=== PATIENT | female | born 1990 | race Caucasian/White ===

== ENCOUNTER 2020-10-31 10:08 | Emergency (ER) | payer OTHER ==
[2020-10-31] MEDS ORDERED: KETOROLAC 15 MG/ML 1 ML VIAL IM STA (11:05)
--- NOTE | 2020-10-31 11:42 | XR ---
EXAMINATION TYPE: XR lumbosacral spine min 4V DATE OF EXAM: 10/31/2020 COMPARISON: None HISTORY: Pain TECHNIQUE: 5 view lumbar spine FINDINGS: There is a scoliosis present with convexity to the left centered at L2. There are 5 lumbar- type vertebral bodies. The pedicles are intact. No spondylolytic defects are evident. Facets appear n ormal. Vertebral body heights are preserved. Disc heights are preserved. Alignment in the sagittal pl ane is normal. IMPRESSION: 1. Scoliosis.
--- NOTE | 2020-10-31 11:50 | ED ---
Back Pain HPI - General Chief Complaint: Back Pain/Injury Stated Complaint: Back pain/leg numbness and falls Time Seen by Provider: 10/31/20 10:37 Source: patient, RN notes reviewed Mode of arrival: ambulatory Limitations: physical limitation - History of Present Illness Initial Comments: This is a 30-year-old female sent emergency Department chief complaint low back pain. 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 Patient states that seemed to dissipate some states last couple days she had extreme pain persists morning. States that it sharp pain in her lower lumbar region and radiates down her both of her legs. Patient states it felt like the pain sent to the ground earlier today she denies any bowel, bladder incontinence or retention or saddle anesthesias. She states she has no scoliosis. Patient has no dysuria no hematuria denies any chance . - Related Data Previous Rx's Medication Instructions Recorded Ibuprofen [Motrin] 600 mg PO Q8HR PRN #20 tab 10/31/20 Orphenadrine [Norflex] 100 mg PO Q12H #14 tablet.er 10/31/20 predniSONE 50 mg PO DAILY #5 tab 10/31/20 Allergies Allergy/AdvReac Type Severity Reaction Status Date / Time nitrofurantoin Allergy Rash/Hives Verified 10/31/20 10:19 [From Macrobid] morphine AdvReac headache Verified 10/31/20 10:20 Review of Systems ROS Statement: Those systems with pertinent positive or pertinent negative responses have been documented in the HPI. ROS Other: All systems not noted in ROS Statement are negative. Past Medical History Past Medical History: Thyroid Disorder History of Any Multi-Drug Resistant Organisms: None Reported Past Surgical History: Orthopedic Surgery Additional Past Surgical History / Comment(s): finger Past Psychological History: ADD/ADHD, Depression, PTSD Smoking Status: Current every day smoker Past Alcohol Use History: Rare Past Drug Use History: Marijuana General Exam Limitations: physical limitation General appearance: alert, in no apparent distress Head exam: Present: atraumatic, normocephalic, normal inspection Eye exam: Present: normal appearance, PERRL, EOMI. Absent: scleral icterus, conjunctival injection, periorbital swelling ENT exam: Present: normal exam, normal oropharynx, mucous membranes moist Neck exam: Present: normal inspection, full ROM. Absent: tenderness, meningismus, lymphadenopathy Respiratory exam: Present: normal lung sounds bilaterally. Absent: respiratory distress, wheezes, rales, rhonchi, stridor Cardiovascular Exam: Present: regular rate, normal rhythm, normal heart sounds. Absent: systolic murmur, diastolic murmur, rubs, gallop, clicks GI/Abdominal exam: Present: soft, normal bowel sounds. Absent: distended, tenderness, guarding, rebound, rigid Extremities exam: Present: other (Lower extremity strength equal bilaterally neurovascular intact equal and equal warmth) Back exam: Present: full ROM (Moderate discomfort), tenderness, muscle spasm, paraspinal tenderness. Absent: vertebral tenderness Neurological exam: Present: alert, oriented X3, CN II-XII intact, reflexes normal. Absent: motor sensory deficit Skin exam: Present: warm, dry, intact, normal color. Absent: rash Course Vital Signs 10/31/20 10/31/20 10:13 12:30 Temperature 98.6 F 98.4 F Pulse Rate 99 72 Respiratory 16 18 Rate Blood Pressure 129/84 106/62 O2 Sat by Pulse 100 99 Oximetry Medical Decision Making - Medical Decision Making 30-year-old presented for low back pain. Patient's symptoms are more consistent with lumbar to The. She is neurovascularly intact with no red flag symptoms. Patient will follow-up with on-call orthopedics. Patient provided pain control. Return parameters were discussed. Disposition Clinical Impression: Lumbar radiculopathy Disposition: HOME SELF-CARE Condition: Stable Instructions (If sedation given, give patient instructions): Acute Low Back Pain (ED) Additional Instructions: Please return to the Emergency Department if symptoms worsen or any other con cerns. Prescriptions: Ibuprofen [Motrin] 600 mg PO Q8HR PRN #20 tab PRN Reason: Pain Orphenadrine [Norflex] 100 mg PO Q12H #14 tablet.er predniSONE 50 mg PO DAILY #5 tab Is patient prescribed a controlled substance at d/c from ED?: No Referrals: None,Stated [Primary Care Provider] - 1-2 days Nathan Neves DO [Doctor of Osteopathic Medicine] - 1-2 days Time of Disposition: 12:38
[2020-10-31 12:33] VITALS: BP 106/62; PULSE 72; RESP 18; TEMP 98.4
[2020-10-31] MEDS ORDERED: HYDROcodone/APAP 5-325MG 1 EACH TAB PO STA (12:36)
[2020-10-31] MEDS ORDERED: ACET/COD 300 MG/30 MG STARTER PACK 6 TAB BTL PO STA (12:36)
== END 2020-10-31 12:46 | disposition home or self-care (01) ==
LOC: EC 10:08
DX: M54.16 Radiculopathy, lumbar region (principal); F17.200 Nicotine dependence, unspecified, uncomplicated; Z88.5 Allergy status to narcotic agent; Z88.1 Allergy status to other antibiotic agents
CPT/HCPCS: 72110; 99283; 96372; J1885

== ENCOUNTER → 2024-06-22 | Outpatient (CLI) | payer OTHER ==
--- NOTE | 2024-06-22 14:52 | XR ---
EXAMINATION TYPE: XR chest 2V DATE OF EXAM: 06/22/2024 2:46 PM COMPARISON: None. CLINICAL INDICATION: Female, 33 years old with history of S20.211A CONTUSION OF RIGHT FRONT WALL OF T HORAX, INITIAL EN, TECHNIQUE: XR chest 2V view(s) obtained. FINDINGS: The heart size is normal. The pulmonary vasculature is normal. The lungs are clear. IMPRESSION: 1. No acute pulmonary process. [facility], , 06/22/2024 2:50 PM
--- NOTE | 2024-06-22 14:54 | XR ---
EXAMINATION TYPE: XR ribs RT DATE OF EXAM: 06/22/2024 2:46 PM COMPARISON: None. CLINICAL INDICATION: Female, 33 years old with history of S20.211A CONTUSION OF RIGHT FRONT WALL OF T HORAX, INITIAL EN, TECHNIQUE: Right ribs 2 view(s) obtained. FINDINGS: No displaced rib fractures are evident. No pneumothorax is evident. Follow up exams can be performed as clinically indicated IMPRESSION: 1. No displaced rib fractures [facility], , 06/22/2024 2:51 PM
== END | disposition home or self-care (01) ==
LOC: RADXRMAIN 14:19
PROVIDERS: ATTEND Emergency Medicine
DX: S20.211A Contusion of right front wall of thorax, initial encounter (principal)
CPT/HCPCS: 71046

== ENCOUNTER 2025-01-18 08:37 | Emergency (ER) | payer OTHER ==
--- NOTE | 2025-01-18 09:17 | ED ---
Abdominal Pain HPI - General Chief Complaint: Abdominal Pain Stated Complaint: NV Time Seen by Provider: 01/18/25 08:43 Source: patient, RN notes reviewed Mode of arrival: ambulatory Limitations: no limitations - History of Present Illness Initial Comments: 34-year-old female presents emergency department chief complaint of nausea vomiting, abdominal discomfort. Patient states started states initially thought it was just from she recently started Zepbound and states that she did have 2 alcoholic drinks recently. Patient states that she has having epigastric discomfort, left upper quadrant states that she just feels very dehydrated cannot keep anything down. Patient did try some Zofran at home with no relief. - Related Data Previous Rx's Medication Instructions Recorded Ibuprofen [Motrin] 600 mg PO Q8HR PRN #20 tab 10/31/20 Orphenadrine [Norflex] 100 mg PO Q12H #14 tablet.er 10/31/20 predniSONE 50 mg PO DAILY #5 tab 10/31/20 Famotidine [Pepcid] 20 mg PO BID #28 tablet 01/18/25 Metoclopramide [Reglan] 10 mg PO TID PRN #15 tab 01/18/25 Allergies Allergy/AdvReac Type Severity Reaction Status Date / Time nitrofurantoin Allergy Rash/Hives Verified 10/31/20 10:19 [From Macrobid] morphine AdvReac headache Verified 10/31/20 10:20 Review of Systems ROS Statement: Those systems with pertinent positive or pertinent negative responses have been documented in the HPI. ROS Other: All systems not noted in ROS Statement are negative. Past Medical History Past Medical History: Thyroid Disorder Additional Past Medical History / Comment(s): hpsimoto's History of Any Multi-Drug Resistant Organisms: None Reported Past Surgical History: Orthopedic Surgery Additional Past Surgical History / Comment(s): finger Past Psychological History: ADD/ADHD, Depression, PTSD Smoking Status: Current every day smoker Past Alcohol Use History: Rare Past Drug Use History: Marijuana General Exam Limitations: no limitations General appearance: alert, in no apparent distress Head exam: Present: atraumatic, normocephalic, normal inspection Eye exam: Present: normal appearance, PERRL, EOMI. Absent: scleral icterus, conjunctival injection, periorbital swelling ENT exam: Present: normal exam, normal oropharynx, mucous membranes moist Neck exam: Present: normal inspection, full ROM. Absent: tenderness, meningismus, lymphadenopathy Respiratory exam: Present: normal lung sounds bilaterally. Absent: respiratory distress, wheezes, rales, rhonchi, stridor Cardiovascular Exam: Present: regular rate, normal rhythm, normal heart sounds. Absent: systolic murmur, diastolic murmur, rubs, gallop, clicks GI/Abdominal exam: Present: soft, normal bowel sounds. Absent: distended, tenderness, guarding, rebound, rigid Course Vital Signs 01/18/25 08:48 Temperature 97.5 F L Pulse Rate 91 Respiratory 20 Rate Blood Pressure 135/90 O2 Sat by Pulse 99 Oximetry Medical Decision Making - Medical Decision Making Was pt. sent in by a medical professional or institution (, PA, DIRECTOR PHYSICAL THERAPY, urgent care, hospital, or [facility]...) When possible be specific @ -No Did you speak to anyone other than the patient for history (EMS, parent, family, police, friend...)? What history was obtained from this source @ -No Did you review nursing and triage notes (agree or disagree)? Why? @ -I reviewed and agree with nursing and triage notes Were old charts reviewed (outside hosp., previous admission, EMS record, old EKG, old radiological studies, urgent care reports/EKG's, [facility] records)? Report findings @ -No old charts were reviewed Differential Diagnosis (chest pain, altered mental status, abdominal pain women, abdominal pain men, vaginal bleeding, weakness, fever, dyspnea, syncope, headache, dizziness, GI bleed, back pain, seizure, CVA, palpatations, mental health, musculoskeletal)? @ -Differential Abdominal Pain Women: Appendicitis, Cholecystitis, diverticulosis, ischemic bowel, pancreatitis, hepatitis, UTI, gastroenteritis, AAA, incarcerated hernia, bowel obstruction, constipation, inflammatory bowel, hepatitis, peptic ulcer disease, splenic infarction, perforated viscus, vulvitis, ovarian torsion, PID, kidney stone, placenta abruption, this is not meant to be an all-inclusive list EKG interpreted by me (3pts min.). @ -None X-rays interpreted by me (1pt min.). @ -None done CT interpreted by me (1pt min.). @ -None done U/S interpreted by me (1pt. min.). @ -None done What testing was considered but not performed or refused? (CT, X-rays, U/S, labs)? Why? @ -None What meds were considered but not given or refused? Why? @ -None Did you discuss the management of the patient with other professionals (professionals i.e. , PA, DIRECTOR PHYSICAL THERAPY, lab, RT, psych nurse, social service liaison, pilot safety inspector, teacher, landcare officer, adult protective caseworker)? Give summary @ -No Was smoking cessation discussed for >3mins.? @ -No Was critical care preformed (if so, how long)? @ -No Were there social determinants of health that impacted care today? How? (Homelessness, low income, unemployed, alcoholism, drug addiction, transportation, low edu. Level, literacy, decrease access to med. care, [place] [facility], rehab)? @ -No Was there de-escalation of care discussed even if they declined (Discuss DNR or withdrawal of care, Hospice)? DNR status @ -No What co-morbidities impacted this encounter? (DM, HTN, Smoking, COPD, CAD, Ca ncer, CVA, ARF, Chemo, Hep., AIDS, mental health diagnosis, sleep apnea, morbid obesity)? @ -None Was patient admitted / discharged? Hospital course, mention meds given and route, prescriptions, significant lab abnormalities, going to OR and other pertinent info. @ -Discharge patient does feel greatly improved IV fluids, antiemetics. Laboratory studies unremarkable. [place] this related to medication reaction. Patient will follow with the PCP discharged with antiemetics. Undiagnosed new problem with uncertain prognosis? @ -No Drug Therapy requiring intensive monitoring for toxicity (Heparin, Nitro, Insulin, Cardizem)? @ -No Were any procedures done? @ -No Diagnosis/symptom? @ -Nausea vomiting dehydration medication reaction Acute, or Chronic, or Acute on Chronic? @ -Acute Uncomplicated (without systemic symptoms) or Complicated (systemic symptoms)? @ -Complicated Side effects of treatment? @ -No Exacerbation, Progression, or Severe Exacerbation? @ -No Poses a threat to life or bodily function? How? (Chest pain, [place], ID, pneumonia, PE, COPD, DKA, ARF, appy, cholecystitis, CVA, Diverticulitis, Homicidal, Suicidal, threat to staff... and all critical care pts) @ -No - Lab Data Result diagrams: 01/18/25 09:06 01/18/25 09:06 Lab Results 01/18/25 01/18/2501/18/25 Range/Units 09:06 09:06 09:06 WBC 10.06 H (4.50-10.00) 10*3/uL RBC 5.10 (4.10-5.20) 10*6/uL Hgb 15.5 H (12.0-15.0) g/dL Hct 44.2 (37.2-46.3) % MCV 86.7 (80.0-97.0) fL MCH 30.4 (27.0-32.0) pg MCHC 35.1 (32.0-37.0) g/dL Plt Count 221 (140-440) 10*3/uL MPV 10.4 (9.5-12.2) fL Immature Gran % (Auto) 0.3 % Neutrophils % 80.2 % Lymphocytes % 13.1 % Monocytes % 5.7 % Eosinophils % 0.2 % Basophils % 0.5 % Immature Gran # 0.03 (0.00-0.04) 10*3/uL Neutrophils # 8.07 H (1.80-7.70) 10*3/uL Lymphocytes # 1.32 (0.90-5.00) 10*3/uL Monocytes # 0.57 (0.20-1.00) 10*3/uL Eosinophils # 0.02 L (0.04-0.35) 10*3/uL Basophils # 0.05 (0.00-0.10) 10*3/uL Sodium (137-145) mmol/L Potassium (3.5-5.1) mmol/L Chloride (98-107) mmol/L Carbon Dioxide (22-30) mmol/L Anion Gap mmol/L BUN (7-17) mg/dL Creatinine (0.52-1.04) mg/dL Est GFR (CKD-EPI)AfAm (>60 ml/min/1.73 sqM) Est GFR (CKD-EPI)NonAf (>60 ml/min/1.73 sqM) Glucose (74-99) mg/dL Calcium (8.4-10.2) mg/dL Magnesium (1.6-2.3) mg/dL Total Bilirubin (0.2-1.3) mg/dL AST (14-36) U/L ALT (4-34) U/L Alkaline Phosphatase (38-126) U/L Total Protein (6.3-8.2) g/dL Albumin (3.5-5.0) g/dL Lipase (23-300) U/L Urine Color Yellow Urine Appearance Clear (Clear) Urine pH 6.5 (5.0-8.0) Ur Specific [place] 1.028 (1.001-1.035) Urine Protein 1+ H (Negative) Urine Glucose (UA) Negative (Negative) Urine Ketones 2+ H (Negative) Urine Blood Negative (Negative) Urine Nitrite Negative (Negative) Urine Bilirubin Negative (Negative) Urine Urobilinogen 3.0 (<2.0) mg/dL Ur Leukocyte Esterase Negative (Negative) Urine RBC 1 (0-5) /hpf Urine WBC 4 (0-5) /hpf Ur Squamous Epith Cells 4 (0-4) /hpf Urine Mucus Rare H (None) /hpf Urine HCG, Qual Not Detected (Not Detectd) 01/18/25 Range/Units 09:06 WBC (4.50-10.00) 10*3/uL RBC (4.10-5.20) 10*6/uL Hgb (12.0-15.0) g/dL Hct (37.2-46.3) % MCV (80.0-97.0) fL MCH (27.0-32.0) pg MCHC (32.0-37.0) g/dL Plt Count (140-440) 10*3/uL MPV (9.5-12.2) fL Immature Gran % (Auto) % Neutrophils % % Lymphocytes % % Monocytes % % Eosinophils % % Basophils % % Immature Gran # (0.00-0.04) 10*3/uL Neutrophils # (1.80-7.70) 10*3/uL Lymphocytes # (0.90-5.00) 10*3/uL Monocytes # (0.20-1.00) 10*3/uL Eosinophils # (0.04-0.35) 10*3/uL Basophils # (0.00-0.10) 10*3/uL Sodium 140 (137-145) mmol/L Potassium 4.0 (3.5-5.1) mmol/L Chloride 104 (98-107) mmol/L Carbon Dioxide 24 (22-30) mmol/L Anion Gap 12 mmol/L BUN 11 (7-17) mg/dL Creatinine 0.86 (0.52-1.04) mg/dL Est GFR (CKD-EPI)AfAm >90 (>60 ml/min/1.73 sqM) Est GFR (CKD-EPI)NonAf 89 (>60 ml/min/1.73 sqM) Glucose 76 (74-99) mg/dL Calcium 9.9 (8.4-10.2) mg/dL Magnesium 2.0 (1.6-2.3) mg/dL Total Bilirubin 1.1 (0.2-1.3) mg/dL AST 22 (14-36) U/L ALT 14 (4-34) U/L Alkaline Phosphatase 54 (38-126) U/L Total Protein 7.6 (6.3-8.2) g/dL Albumin 4.7 (3.5-5.0) g/dL Lipase 57 (23-300) U/L Urine Color Urine Appearance (Clear) Urine pH (5.0-8.0) Ur Specific [place] (1.001-1.035) Urine Protein (Negative) Urine Glucose (UA) (Negative) Urine Ketones (Negative) Urine Blood (Negative) Urine Nitrite (Negative) Urine Bilirubin (Negative) Urine Urobilinogen (<2.0) mg/dL Ur Leukocyte Esterase (Negative) Urine RBC (0-5) /hpf Urine WBC (0-5) /hpf Ur Squamous Epith Cells (0-4) /hpf Urine Mucus (None) /hpf Urine HCG, Qual (Not Detectd) Disposition Clinical Impression: Abdominal pain, Nausea & vomiting, Medication adverse effect Disposition: HOME SELF-CARE Condition: Stable Instructions (If sedation given, give patient instructions): Abdominal Pain (ED) Additional Instructions: Please return to the Emergency Department if symptoms worsen or any other concerns. Prescriptions: Famotidine [Pepcid] 20 mg PO BID #28 tablet Metoclopramide [Reglan] 10 mg PO TID PRN #15 tab PRN Reason: Nausea Is patient prescribed a controlled substance at d/c from ED?: No Referrals: Ovi Nunez MD [Primary Care Provider] - 1-2 days Time of Disposition: 11:04
[2025-01-18 09:24] LABS: Basophils # (A) 0.05 10*3/uL (0.00-0.10); Basophils % (A) 0.5 %; Eosinophils # (A) 0.02 10*3/uL (0.04-0.35); Eosinophils % (A) 0.2 %; HCT 44.2 % (37.2-46.3); HGB 15.5 g/dL (12.0-15.0); Lymphocytes # (A) 1.32 10*3/uL (0.90-5.00); Lymphocytes % (A) 13.1 %; MCH 30.4 pg (27.0-32.0); MCHC 35.1 g/dL (32.0-37.0); MCV 86.7 fL (80.0-97.0); Mean Platelet Volume 10.4 fL (9.5-12.2); Monocytes # (A) 0.57 10*3/uL (0.20-1.00); Monocytes % (A) 5.7 %; Neutrophils # (A) 8.07 10*3/uL (1.80-7.70); Neutrophils % (A) 80.2 %; Platelet Count 221 10*3/uL (140-440); RDW 11.9 % (11.5-14.5); WBC 10.06 10*3/uL (4.50-10.00)
[2025-01-18 09:29] LABS: Appearance,Urine Clear (Clear); Bilirubin,Urine Negative (Negative); Blood,Urine Negative (Negative); Color,Urine Yellow; Glucose,Urine (UA) Negative (Negative); Ketones,Urine 2+ (Negative); Leukocyte Esterase,Urine Negative (Negative); Mucus,Urine Rare /hpf; Nitrite,Urine Negative (Negative); PH, Urine 6.5 (5.0-8.0); Protein,Urine 1+ (Negative); RBC,Urine 1 /hpf (0-5); Specific Gravity,Urine 1.028 (1.001-1.035); Squamous Epithelial Cell,Urine 4 /hpf (0-4); WBC,Urine 4 /hpf (0-5)
[2025-01-18] MEDS: KETOROLAC 15 MG/ML 1 ML VIAL IVP STA (09:34)
[2025-01-18] MEDS: METOCLOPRAMIDE 5 MG/ML 2 ML VIAL IVP STA (09:34)
[2025-01-18] MEDS: diphenhydrAMINE 50 MG/ML 1 ML VIAL IVP STA (09:34)
[2025-01-18] MEDS: FAMOTIDINE 20 MG/2 ML VIAL IV STA (09:34)
[2025-01-18] MEDS: SODIUM CHLORIDE 0.9% 1,000 ML IV ONE ×2 (09:35)
[2025-01-18 09:44] LABS: ALT 14 U/L (4-34); AST 22 U/L (14-36); African American GFR (CKD) >90 (>60 ml/min/1.73 sqM); Albumin 4.7 g/dL (3.5-5.0); Alkaline Phosphatase 54 U/L (38-126); Anion Gap 12 mmol/L; Blood Urea Nitrogen 11 mg/dL (7-17); Calcium 9.9 mg/dL (8.4-10.2); Carbon Dioxide 24 mmol/L (22-30); Chloride 104 mmol/L (98-107); Glucose 76 mg/dL (74-99); Lipase 57 U/L (23-300); Non-African American GFR(CKD) 89 (>60 ml/min/1.73 sqM); Sodium 140 mmol/L (137-145); Total Bilirubin 1.1 mg/dL (0.2-1.3); Total Protein 7.6 g/dL (6.3-8.2)
[2025-01-18 11:44] VITALS: BP 106/71; PULSE 79; RESP 18; TEMP 98.1
== END 2025-01-18 11:44 | disposition home or self-care (01) ==
LOC: EC 08:37
DX: R10.13 Epigastric pain (principal); T50.905A Adverse effect of unspecified drugs, medicaments and biological substances, initial encounter; R11.2 Nausea with vomiting, unspecified; F17.200 Nicotine dependence, unspecified, uncomplicated; Z88.5 Allergy status to narcotic agent; Z88.8 Allergy status to other drugs, medicaments and biological substances
CPT/HCPCS: 36415; 80053; 83690; 83735; 85025; 81001; 81025; 99284; 96374; 96375 ×3; 96361; J1200; J2765; J1885; J1308